=== PATIENT | male | born 2000 | race Caucasian/White ===

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

== ENCOUNTER 2018-02-05 10:34 | Emergency (ER) | payer OTHER ==
[~2018-02-05] VITALS: Ht 160 cm; Wt 84.4 kg
[2018-02-05 10:36] VITALS: Ht 160 cm; Wt 84.4 kg
[2018-02-05 11:14] LABS: PLATELET COUNT 208 x10^3mcL (130-400); RED CELL DISTRIBUTION WIDTH 14.1 % (11.5-14.5)
[2018-02-05 11:15] LABS: BASOPHIL % 2.1 % (0-2)
[2018-02-05 11:26] LABS: CALCIUM 8.9 mg/dL (8.5-10.1); CARBON DIOXIDE 29.9 mmol/L (21-32); CHLORIDE SERUM 104 mmol/L (98-107); CREATININE SERUM 1.2 mg/dL (0.7-1.3); GFR1 > 60 mL/min; GLUCOSE SERUM 119 mg/dL (74-106); POTASSIUM SERUM 4.3 mmol/L (3.5-5.1); SODIUM SERUM 138 mmol/L (136-145)
[2018-02-05 11:30] LABS: ALBUMIN 3.5 g/dL (3.4-5.0); ALKALINE PHOSPHATASE 97 U/L (46-116); ALT/SGPT 84 U/L (16-63); AMYLASE 71 U/L (25-115); AST/SGOT 42 U/L (15-37); BILIRUBIN TOTAL 0.36 mg/dL (0.20-1.00); CHOLESTEROL 105 mg/dL (<200); LIPASE 162 IU/L (73-393); TOTAL PROTEIN, SERUM 7.9 g/dL (6.4-8.2)
[2018-02-05 11:34] LABS: microscopic required? NO
[2018-02-05 11:52] LABS: UA SPECIFIC GRAVITY >=1.030 (1.005-1.035); urine erythrocyte NEGATIVE (NEGATIVE)
[2018-02-05 13:37] VITALS: BP 118/70
== END 2018-02-05 13:37 | disposition home or self-care (01) ==
LOC: ED 10:34
PROVIDERS: Emergency Medicine
DX: K76.0 Fatty (change of) liver, not elsewhere classified (principal); R74.0 Nonspecific elevation of levels of transaminase and lactic acid dehydrogenase [LDH]; Q90.9 Down syndrome, unspecified
CPT/HCPCS: J0500; J1885; J7030; Q0092

== ENCOUNTER 2018-02-10 19:33 | Emergency (ER) | payer OTHER | END 2018-02-10 21:46 | disposition left against medical advice (07) | LOC: ED 19:33 | DX: Z53.21 Procedure and treatment not carried out due to patient leaving prior to being seen by health care provider (principal) ==

== ENCOUNTER 2018-02-12 14:12 | Emergency (ER) | payer OTHER ==
[~2018-02-12] VITALS: Ht 154.9 cm; Wt 82.6 kg
[2018-02-12 14:27] VITALS: Ht 154.9 cm; Wt 82.6 kg
[2018-02-12 17:18] VITALS: BP 115/79
== END 2018-02-12 17:18 | disposition home or self-care (01) ==
LOC: ED 14:12
DX: J02.9 Acute pharyngitis, unspecified (principal); R10.9 Unspecified abdominal pain; Q90.9 Down syndrome, unspecified
CPT/HCPCS: J0561; Q0162

== ENCOUNTER 2018-02-13 14:37 | Emergency (ER) | payer OTHER ==
[~2018-02-13] VITALS: Ht 154.9 cm; Wt 82.1 kg
[2018-02-13 14:38] VITALS: Ht 154.9 cm; Wt 82.1 kg
[2018-02-13 15:12] LABS: BASOPHIL % 0.6 % (0-2); PLATELET COUNT 187 x10^3mcL (130-400); RED CELL DISTRIBUTION WIDTH 14.4 % (11.5-14.5)
[2018-02-13 15:20] LABS: CALCIUM 8.2 mg/dL (8.5-10.1); CARBON DIOXIDE 32.4 mmol/L (21-32); CHLORIDE SERUM 103 mmol/L (98-107); CREATININE SERUM 1.2 mg/dL (0.7-1.3); GFR1 > 60 mL/min; GLUCOSE SERUM 88 mg/dL (74-106); POTASSIUM SERUM 3.6 mmol/L (3.5-5.1); SODIUM SERUM 138 mmol/L (136-145)
[2018-02-13 15:25] LABS: ALKALINE PHOSPHATASE 77 U/L (46-116); ALT/SGPT 39 U/L (16-63); AST/SGOT 16 U/L (15-37); BILIRUBIN TOTAL 0.28 mg/dL (0.20-1.00); LIPASE 126 IU/L (73-393); TOTAL PROTEIN, SERUM 7.3 g/dL (6.4-8.2)
[2018-02-13 15:28] LABS: ALBUMIN 2.9 g/dL (3.4-5.0)
[2018-02-13 16:15] VITALS: BP 107/66
== END 2018-02-13 16:13 | disposition home or self-care (01) ==
LOC: ED 14:37
PROVIDERS: Emergency Medicine
DX: R10.9 Unspecified abdominal pain (principal); R50.9 Fever, unspecified
CPT/HCPCS: 36415